=== PATIENT | male | born 1960 | race African-American/Black ===

== ENCOUNTER 2022-01-25 12:58 | Emergency (ER) | payer SELFPAY ==
[~2022-01-25] VITALS: Ht 193 cm; Wt 74.8 kg
[2022-01-25 12:59] VITALS: BP 124/81
== END 2022-01-25 14:12 | disposition left against medical advice (07) ==
LOC: ER 12:58
DX: K08.89 Other specified disorders of teeth and supporting structures (principal); Z53.21 Procedure and treatment not carried out due to patient leaving prior to being seen by health care provider